=== PATIENT | male | born 1970 | race Caucasian/White ===

== ENCOUNTER 2018-10-05 09:03 | Emergency (ER) | payer SELFPAY ==
--- NOTE | 2018-10-05 09:25 | EDM.PDOC ---
<DebiAkilah R - Last Filed: 10/05/18 10:58> ED HPI GENERAL MEDICAL PROBLEM - General Chief Complaint: Lower Extremity Injury/Pain Stated Complaint: INJURED LEFT KNEE A WEEK AGO. PAIN/SWELLING Time Seen by Provider: 10/05/18 09:10 - Related Data Allergies Allergy/AdvReac Type Severity Reaction Status Date / Time No Known Allergies Allergy Verified 10/05/18 09:14 Home Meds: Home Meds . [No Known Home Meds] 10/05/18 [History] Review of Systems - Review of Systems Review Of Systems: See Below ED EXAM, GENERAL - Physical Exam Exam: See Below Course - Vital Signs Last Recorded V/S: Last Vital Signs Temp 97.5 F 10/05/18 09:10 Pulse 75 10/05/18 11:20 Resp 16 10/05/18 11:20 BP 109/75 10/05/18 11:20 Pulse Ox 95 10/05/18 11:20 Departure - Departure Time of Disposition: 10:59 Disposition: Home, Self-Care 01 Condition: Good Clinical Impression: Orozco's cyst of knee Qualifiers: Laterality: left Qualified Code(s): M71.22 - Synovial cyst of popliteal space [ Orozco], left knee - Discharge Information Instructions: Orozco Cyst Referrals: PCP,None [Primary Care Provider] - Celestino Hussein MD [Physician] - Forms: ED Department Discharge Additional Instructions: 1. See Dr. Hussein, orthopedic surgery, 3:45 PM Thursday, October 11. [facility]. 2. Aleve 2 tabs in the a.m. and 2 tabs in the p.m. or ibuprofen 2-3 tabs 3 times a day as needed for pain. <Tierra Ren E - Last Filed: 10/06/18 08:33> ED HPI GENERAL MEDICAL PROBLEM - General Source of Information: Reports: Patient History Limitations: Reports: No Limitations - History of Present Illness INITIAL COMMENTS - FREE TEXT/NARRATIVE: HISTORY AND PHYSICAL: History of present illness: 48-year-old male presents to the emergency room with complaints of a lump posterior aspect of his left knee onset a week ago. He does complain of discomfort to the medial aspect of the patella with palpation, along with discomfort with ambulation. He is able to bend the knee with with no difficulty and no noted soft tissue swelling to the anterior aspect of the knee. Review of systems: As per history of present illness and below otherwise all systems reviewed and negative. Past medical history: As per history of present illness and as reviewed below otherwise noncontributory. Surgical history: As per history of present illness and as reviewed below otherwise noncontributory. Social history: See social history for further information Family history: As per history of present illness and as reviewed below otherwise noncontributory. Physical exam: General: Well-developed well-nourished 48-year-old male in no acute distress. HEENT: Atraumatic, normocephalic, pupils equal and reactive bilaterally, negative for conjunctival pallor or scleral icterus, mucous membranes moist, TMs normal bilaterally, throat clear, neck supple, nontender, trachea midline. No drooling or trismus noted. No meningeal signs. No hot potato voice noted. Lungs: Clear to auscultation, breath sounds equal bilaterally, chest nontender. Heart: S1S2, regular rate and rhythm without overt murmur Abdomen: Soft, nondistended, nontender. Negative for masses or hepatosplenomegaly. Negative for costovertebral tenderness. Pelvis: Stable nontender. Genitourinary: Deferred. Rectal: Deferred. Skin: Intact, warm, dry. No lesions or rashes noted. Extremities: Atraumatic, moves all extremities per self without difficulty or deficits, negative for cords or calf pain. Neurovascular unremarkable. Does have a palpable all the posterior aspect of the left knee. No erythema or soft tissue swelling to the anterior aspect of the left knee. Neuro: Awake, alert, oriented. Cranial nerves II through XII unremarkable. Cerebellum unremarkable. Motor and sensory unremarkable throughout. Exam nonfocal. Notes: patient was offered Toradol for pain control and declined need for it. Akilah Carrera was informed of this patient; will follow up and disposition patient after U/S Diagnostics: posterior left knee ultrasound Therapeutics: none Impression: Bakers Cyst Definitive disposition and diagnosis as appropriate pending reevaluation and review of above. Left Knee Pain Score (Numeric/FACES): 2 Past Medical History - Past Health History Medical/Surgical History: Denies Medical/Surgical History - Infectious Disease History Infectious Disease History: Reports: Chicken Pox Social & Family History - Tobacco Use Smoking Status *Q: Current Every Day Smoker Years of Tobacco use: 20 Packs/Tins Daily: 1.5 - Caffeine Use Caffeine Use: Reports: Coffee
--- NOTE | 2018-10-05 10:15 | US ---
EXAMINATION: Left knee ultrasound HISTORY: Question Orozco's cyst COMPARISON: None TECHNIQUE: Grayscale, real-time, and color Doppler imaging obtained. FINDINGS: The lung the medial aspect of the knee there is a 5.6 x 1.7 cm cystic structure passing between the muscular layers. This is consistent with a septated Orozco's cyst. No increased color Doppler flow. IMPRESSION: 1. Probable 5.6 x 1.7 cm Orozco's cyst.
== END 2018-10-05 11:20 | disposition home or self-care (01) ==
LOC: MW.ED 09:03
DX: M71.22 Synovial cyst of popliteal space [Baker], left knee (principal); F17.210 Nicotine dependence, cigarettes, uncomplicated
CPT/HCPCS: 76882; 76882-26; 99283-25